=== PATIENT | male | born 1985 | race Caucasian/White ===

== ENCOUNTER 2018-01-07 19:01 | Emergency (ER) | payer SELFPAY ==
--- NOTE | 2018-01-07 19:10 | ER Report ---
History and Physical Time Seen By MD: 19:09 Hx. of Stated Complaint: c/o R flank and lower back pain, onset yesterday, pink-colored urine. Pt states he feels this may be a stone. HPI/ROS CHIEF COMPLAINT: Right flank pain HISTORY OF PRESENT ILLNESS: 32-year-old male with a previous history of a kidney stone 6 years ago, presents ambulatory to the ER with sudden onset of right flank pain yesterday. He is very uncomfortable. He's had noted some pink colored urine. He's had no fever or chills. He's had several episodes of nausea and vomiting. REVIEW OF SYSTEMS: Respiratory: No cough, no dyspnea. Cardiovascular: No chest pain, no palpitations. Gastrointestinal: As above Musculoskeletal: As above Allergies: Coded Allergies: No Known Drug Allergies (Unverified , 01/07/18) Home Meds Active Scripts Promethazine Hcl (PROMETHAZINE HCL) 25 Mg Tablet, 25 MG PO Q8H PRN for NAUSEA/VOMITING, #12 TAB Prov:SHERI NIETO DO 01/07/18 Hydrocodone Bit/Acetaminophen (NORCO 5-325 TABLET) 1 Each Tablet, 1 EACH PO Q4H PRN for PAIN, #12 TAB Prov:EMILIASHERI Polk DO 01/07/18 Reviewed Nurses Notes: Yes Old Medical Records Reviewed: Yes Constitutional Vital Sign - Last 24 Hours 01/07/18 01/07/18 01/07/18 01/07/18 19:04 19:04 19:39 19:54 Temp 99.5 Pulse 97 84 72 Resp 16 B/P (MAP) 137/90 (106) 137/90 Pulse Ox 96 92 93 O2 Delivery Room Air 01/07/18 01/07/18 01/07/18 01/07/18 19:59 20:00 20:04 20:09 Pulse 73 76 81 B/P (MAP) 118/83 (95) Pulse Ox 92 94 93 01/07/18 01/07/18 01/07/18 01/07/18 20:14 20:19 20:29 20:30 Pulse 106 71 67 B/P (MAP) 115/78 (90) Pulse Ox 94 93 93 01/07/18 20:34 Pulse 74 Pulse Ox 93 Intake and Output 01/07/18 01/07/18 01/08/18 15:00 23:00 07:00 Intake Total 1000 ml Balance 1000 ml Physical Exam General Appearance: The patient is alert, has no immediate need for airway protection and no current signs of toxicity. Vital signs stable, afebrile, pulse ox normal Eyes: Pupils equal and round no injection. Respiratory: Chest is non tender, lungs are clear to auscultation. Cardiac: regular rate and rhythm Gastrointestinal: Abdomen is soft and non tender, no masses, bowel sounds normal. Musculoskeletal: Neck: Neck is supple and non tender. Extremities have full range of motion and are non tender. Skin: No rashes or lesions. DIFFERENTIAL DIAGNOSIS: After history and physical exam differential diagnosis was considered for flank pain including but not limited to musculoskeletal causes, kidney stone, pyelonephritis, shingles, and intra-abdominal causes such as diverticulitis and appendicitis. Medical Decision Making Data Points Result Diagram: 01/07/18193101/07/181931 Laboratory Hematology Test 01/07/18 19:22 01/07/18 19:32 Urine Color Yellow Urine Clarity Clear Urine pH 6.0 pH (4.8-9.5) Urine Specific [place] 1.004 Urine Protein Negative mg/dL (NEGATIVE) Urine Glucose (UA) Negative mg/dL (NEGATIVE) Urine Ketones Negative mg/dL (NEGATIVE) Urine Blood Moderate (NEGATIVE) Urine Nitrite Negative (NEGATIVE) Urine Bilirubin Negative (NEGATIVE) Urine Urobilinogen Negative mg/dL (0.2-1.9) Urine Leukocyte Esterase Negative (NEGATIVE) Urine RBC 22 /HPF (0-2/HPF) Urine WBC 1 /HPF (0-5/HPF) Urine Squamous Epithelial Cells None /LPF (</=FEW) Urine Bacteria Negative /HPF (NONE-FEW) Urine Mucus None /HPF (NONE-FEW) Red Blood Count 5.34 M/uL (4.00-5.60) Mean Corpuscular Volume 83.8 fL (80.0-96.0) Mean Corpuscular Hemoglobin 29.2 pg (26.0-33.0) Mean Corpuscular Hemoglobin Concent 34.8 g/dL (32.0-36.0) Red Cell Distribution Width 13.7 % (11.5-14.5) Mean Platelet Volume 8.3 fL (7.2-11.1) Neutrophils (%) (Auto) 62.9 % (39.4-72.5) Lymphocytes (%) (Auto) 29.0 % (17.6-49.6) Monocytes (%) (Auto) 6.5 % (4.1-12.4) Eosinophils (%) (Auto) 0.3 % (0.4-6.7) Basophils (%) (Auto) 1.3 % (0.3-1.4) Nucleated RBC Relative Count (auto) 0.1 /100WBC Neutrophils # (Auto) 4.5 K/uL (2.0-7.4) Lymphocytes # (Auto) 2.1 K/uL (1.3-3.6) Monocytes # (Auto) 0.5 K/uL (0.3-1.0) Eosinophils # (Auto) 0.0 K/uL (0.0-0.5) Basophils # (Auto) 0.1 K/uL (0.0-0.1) Nucleated RBC Absolute Count (auto) 0.00 K/uL Sodium Level 140 mmol/L (137-145) Potassium Level 3.4 mmol/L (3.5-5.0) Chloride Level 103 mmol/L (98-107) Carbon Dioxide Level 25 mmol/L (22-30) Blood Urea Nitrogen 8 mg/dl (9-21) Creatinine 0.80 mg/dl (0.66-1.25) Glomerular Filtration Rate Calc > 60.0 Random Glucose 129 mg/dl (75-110) Calcium Level 9.4 mg/dl (8.4-10.2) Total Bilirubin 0.6 mg/dl (0.2-1.3) Aspartate Amino Transf (AST/SGOT) 19 U/L (0-35) Alanine Aminotransferase (ALT/SGPT) 30 U/L (0-56) Alkaline Phosphatase 65 U/L (0-126) Total Protein 7.8 g/dl (6.3-8.2) Albumin 4.7 g/dl (3.5-5.0) Amylase Level 47 U/L (0-110) Lipase 61 U/L (23-300) Chemistry Test 01/07/18 19:22 01/07/18 19:32 Urine Color Yellow Urine Clarity Clear Urine pH 6.0 pH (4.8-9.5) Urine Specific [place] 1.004 Urine Protein Negative mg/dL (NEGATIVE) Urine Glucose (UA) Negative mg/dL (NEGATIVE) Urine Ketones Negative mg/dL (NEGATIVE) Urine Blood Moderate (NEGATIVE) Urine Nitrite Negative (NEGATIVE) Urine Bilirubin Negative (NEGATIVE) Urine Urobilinogen Negative mg/dL (0.2-1.9) Urine Leukocyte Esterase Negative (NEGATIVE) Urine RBC 22 /HPF (0-2/HPF) Urine WBC 1 /HPF (0-5/HPF) Urine Squamous Epithelial Cells None /LPF (</=FEW) Urine Bacteria Negative /HPF (NONE-FEW) Urine Mucus None /HPF (NONE-FEW) White Blood Count 7.2 k/uL (4.5-11.0) Red Blood Count 5.34 M/uL (4.00-5.60) Hemoglobin 15.6 g/dL (14.0-18.0) Hematocrit 44.7 % (42.0-52.0) Mean Corpuscular Volume 83.8 fL (80.0-96.0) Mean Corpuscular Hemoglobin 29.2 pg (26.0-33.0) Mean Corpuscular Hemoglobin Concent 34.8 g/dL (32.0-36.0) Red Cell Distribution Width 13.7 % (11.5-14.5) Platelet Count 360 K/uL (150-450) Mean Platelet Volume 8.3 fL (7.2-11.1) Neutrophils (%) (Auto) 62.9 % (39.4-72.5) Lymphocytes (%) (Auto) 29.0 % (17.6-49.6) Monocytes (%) (Auto) 6.5 % (4.1-12.4) Eosinophils (%) (Auto) 0.3 % (0.4-6.7) Basophils (%) (Auto) 1.3 % (0.3-1.4) Nucleated RBC Relative Count (auto) 0.1 /100WBC Neutrophils # (Auto) 4.5 K/uL (2.0-7.4) Lymphocytes # (Auto) 2.1 K/uL (1.3-3.6) Monocytes # (Auto) 0.5 K/uL (0.3-1.0) Eosinophils # (Auto) 0.0 K/uL (0.0-0.5) Basophils # (Auto) 0.1 K/uL (0.0-0.1) Nucleated RBC Absolute Count (auto) 0.00 K/uL Glomerular Filtration Rate Calc > 60.0 Calcium Level 9.4 mg/dl (8.4-10.2) Total Bilirubin 0.6 mg/dl (0.2-1.3) Aspartate Amino Transf (AST/SGOT) 19 U/L (0-35) Alanine Aminotransferase (ALT/SGPT) 30 U/L (0-56) Alkaline Phosphatase 65 U/L (0-126) Total Protein 7.8 g/dl (6.3-8.2) Albumin 4.7 g/dl (3.5-5.0) Amylase Level 47 U/L (0-110) Lipase 61 U/L (23-300) Urinalysis Test 01/07/18 19:22 Urine Color Yellow Urine Clarity Clear Urine pH 6.0 pH (4.8-9.5) Urine Specific [place] 1.004 Urine Protein Negative mg/dL (NEGATIVE) Urine Glucose (UA) Negative mg/dL (NEGATIVE) Urine Ketones Negative mg/dL (NEGATIVE) Urine Blood Moderate (NEGATIVE) Urine Nitrite Negative (NEGATIVE) Urine Bilirubin Negative (NEGATIVE) Urine Urobilinogen Negative mg/dL (0.2-1.9) Urine Leukocyte Esterase Negative (NEGATIVE) Urine RBC 22 /HPF (0-2/HPF) Urine WBC 1 /HPF (0-5/HPF) Urine Squamous Epithelial Cells None /LPF (</=FEW) Urine Bacteria Negative /HPF (NONE-FEW) Urine Mucus None /HPF (NONE-FEW) EKG/Imaging Imaging Results: CT scan of the abdomen and pelvis without contrast was obtained. The results of the study are CT abdomen/pelvis without IV contrast HISTORY: Flank pain One of the following dose optimization techniques was utilized in the performance of this exam: Automated exposure control; adjustment of the mA and/or kV according to the patient's size; or use of an iterative reconstruction technique. Specific details can be referenced in the facility's radiology CT exam operational policy. TECHNIQUE: CT scan of the abdomen and pelvis performed from the lung base through pubic symphysis without IV contrast COMPARISON STUDIES: None FINDINGS: Please note that this exam was tailored for detection of urinary stones. Portions of the upper abdomen may not be included. Also, with intravenous contrast, sensitivity to detection of parenchymal disease is limited. Right kidney and ureter: No renal calculi or renal obstructive uropathy change. Left kidney and ureter: No renal calculi or renal obstructive uropathy change Bladder: Negative Liver/Biliary: Negative. No gallstones or cholecystitis Pancreas: Negative Spleen: Negative Adrenal glands: Negative Kidneys/Retroperitoneum: Negative Pelvic structures: Negative Bowel/peritoneum/mesenteries: Status post appendectomy. No bowel inflammation. Vessels: Negative Musculoskeletal/body wall: Negative Lymph node assessment: Negative Impression: 1. No renal calculi or renal obstructive uropathy change. 2. Status post appendectomy The study was read by the radiologist. I viewed the images myself on the PACS system. ED Course/Re-evaluation Clinical Indication for ER IV: Hydration, IV Access ED Course Patient was admitted to an examination room. H&P was done. The differential diagnoses was considered. On clinical examination. Patient has right-sided flank pain. Patient reports history of kidney stone 6 years ago. He reports this feels similar. He does have microscopic hematuria. A CT scan was performed which shows no obvious stone or hydronephrosis. He could've uric acid stone. Patient be discharged with a limited supply of [place] and Phenergan. He is advised to follow-up with urologist if his symptoms persist. Decision to Disposition Date: Jan 07, 2018 Decision to Disposition Time: 20:17 Depart Departure Latest Vital Signs Vital Signs Date Time Temp Pulse Resp B/P (MAP) Pulse Ox O2 Delivery O2 Flow Rate FiO2 01/07/18 20:34 74 93 01/07/18 20:30 115/78 (90) 01/07/18 19:04 99.5 16 Room Air Impression: Primary Impression: Right flank pain Additional Impression: Microscopic hematuria Condition: Improved Disposition: HOME OR SELF-CARE Referrals: CATARINA ELIZABETH MD, LYLE MD New Scripts Promethazine Hcl (PROMETHAZINE HCL) 25 Mg Tablet 25 MG PO Q8H PRN for NAUSEA/VOMITING, #12 TAB Prov: SHERI NIETO DO 01/07/18 Hydrocodone Bit/Acetaminophen (NORCO 5-325 TABLET) 1 Each Tablet 1 EACH PO Q4H PRN for PAIN, #12 TAB Prov: SHERI NIETO DO 01/07/18 Patient Instructions: Hematuria (ED) Additional Instructions: Follow-up with urology if unimproved in 2-5 days Problem Qualifiers SHEIR NIETO DO Jan 07, 2018 19:10
[2018-01-07] MEDS ORDERED: NS(*) 0.9% 1000 ML BAG 1,000 ML IV ONE (19:16)
[2018-01-07] MEDS ORDERED: KETOROLAC 30 MG/ML VIAL IVP ONE (19:20)
[2018-01-07] MEDS ORDERED: ONDANSETRON 4 MG/2 ML VIAL IVP ONE (19:20)
[2018-01-07] MEDS ORDERED: HYDROMORPHONE HCL 1 MG/ML SYRINGE IVP ONE (19:20)
[2018-01-07 19:48] LABS: PLATELET COUNT, AUTOMATED 360 K/uL (150-450)
--- NOTE | 2018-01-07 20:09 | RADIOLOGY IMAGING REPORT ---
FACILITY: [facility] PATIENT NAME: Stan Dixon : 1985 MR: [id number] V: [id number] EXAM DATE: ORDERING PHYSICIAN: SHERI NIETO TECHNOLOGIST: [place] [facility] [place] Patient: Stan Dixon : 1985 Visit/Account:[id number] Date of Sevice: 01/07/2018 ABDOMEN/PELVIS W/O CONTRAST EXAMINATION: CT abdomen/pelvis without IV contrast HISTORY: Flank pain One of the following dose optimization techniques was utilized in the performance of this exam: Autom ated exposure control; adjustment of the mA and/or kV according to the patient's size; or use of an i terative reconstruction technique. Specific details can be referenced in the facility's radiology C T exam operational policy. TECHNIQUE: CT scan of the abdomen and pelvis performed from the lung base through pubic symphysis wit hout IV contrast COMPARISON STUDIES: None FINDINGS: Please note that this exam was tailored for detection of urinary stones. Portions of the upper abdome n may not be included. Also, with intravenous contrast, sensitivity to detection of parenchymal disea se is limited. Right kidney and ureter: No renal calculi or renal obstructive uropathy change. Left kidney and ureter: No renal calculi or renal obstructive uropathy change Bladder: Negative Liver/Biliary: Negative. No gallstones or cholecystitis Pancreas: Negative Spleen: Negative Adrenal glands: Negative Kidneys/Retroperitoneum: Negative Pelvic structures: Negative Bowel/peritoneum/mesenteries: Status post appendectomy. No bowel inflammation. Vessels: Negative Musculoskeletal/body wall: Negative Lymph node assessment: Negative Impression: 1. No renal calculi or renal obstructive uropathy change. 2. Status post appendectomy Report Dictated By: Hunter Ansari MD at 01/07/2018 8:01 PM Report E-Signed By: Hunter Ansari MD at 01/07/2018 8:06 PM WSN:[email or web address]
[2018-01-07] MEDS ORDERED: PROMETHAZINE HCL 25 MG TAB TH 2 TAB/BOTTLE PO ONE (20:20)
[2018-01-07] MEDS ORDERED: ACET/HYDROC 5/325MG TH ER ONLY 2 TAB/BOTTLE PO ONE (20:20)
[2018-01-07] MEDS ORDERED: PROM-110 PO (20:20)
[2018-01-07] MEDS ORDERED: HYDR-4309 PO (20:20)
[2018-01-07] MEDS ORDERED: MORPHINE 2 MG/ML SYR IVP ONE (20:20)
[2018-01-07 20:30] VITALS: BP 115/78
== END 2018-01-07 20:43 | disposition home or self-care (01) ==
LOC: ER 20:00
DX: R31.29 Other microscopic hematuria (principal); M54.9 Dorsalgia, unspecified
CPT/HCPCS: 74176; 81001; 82150; 83690; 85025; 96361; 96374; 96375; 99284; J1170; J1885; J2270; J2405; J7030; 82040; 82247; 82310; 82374; 82435; 82565; 82947; 84075; 84132; 84155; 84295; 84450; 84460; 84520